=== PATIENT | male | born 1935 | race Caucasian/White ===

== ENCOUNTER 2019-03-25 12:05 | Inpatient (IN) ==
[2019-03-25] MEDS ORDERED: SODIUM CHLORIDE 0.9% 1000ML 1,000 ML IV SCH (12:30)
[2019-03-25 12:55] LABS: Hematocrit (blood only) 19.9 % (42-52); Hemoglobin 6.8 g/dL (14.0-18.0); Mean Corpuscular Hgb Conc 34.2 g/dL (32-36); Mean Corpuscular Volume 90.9 fL (80-100); Mean Platelet Volume 8.7 fL (7.4-10.4); Platelet Count 247 K/uL (130-400); RDW Coefficient of Variation 15.6 % (11.5-14.5); RDW Standard Deviation 51.3 fL (36.4-46.3); Red Blood Count 2.19 M/uL (4.7-6.1); White Blood Count 15.42 K/uL (4.8-10.8)
[2019-03-25 13:01] LABS: Alanine Aminotransferase 17 U/L (12-78); Albumin Level 2.4 gm/dl (3.4-5.0); Aspartate Aminotransferase 18 U/L (15-37); BUN Creatinine Ratio 23.3 (10-20); Blood Urea Nitrogen 41 mg/dl (7-18); Calcium 8.6 mg/dl (8.5-10.1); Carbon Dioxide 25 mmol/L (21-32); Chloride 104 mmol/L (98-107); Est GFR (Non-African American) 34.5; Glucose 142 mg/dl (70-99); Magnesium 2.1 mg/dl (1.8-2.4); Potassium 4.9 mmol/L (3.5-5.1); Sodium 137 mmol/L (136-145)
[2019-03-25 13:05] LABS: Basophils # (auto) 0.03 K/uL (0-0.2); Basophils % (auto) 0.2 %; Eosinophils # (auto) 0.08 K/uL (0-0.5); Eosinophils % (auto) 0.5 %; Immature Granulocytes # (auto) 0.09 K/uL (0.00-0.02); Immature Granulocytes % (auto) 0.6 %; Lymphocytes # (auto) 1.92 K/uL (1.2-3.4); Lymphocytes % (auto) 12.5 %; Monocytes # (auto) 1.02 K/uL (0.11-0.59); Monocytes % (auto) 6.6 %; Neutrophils # (auto) 12.28 K/uL (1.4-6.5); Neutrophils % (auto) 79.6 %; RBC Morphology Unremarkable
--- NOTE | 2019-03-25 13:05 | XRay Report ---
XR chest 1V portable CLINICAL HISTORY: weakness COMPARISON STUDY: 04/26/2013 FINDINGS: The cardiac and mediastinal contours are normal. There is no evidence of focal pulmonary co nsolidation. There is no evidence of failure. No pleural effusions are visualized.[There is a small c alcified granuloma at the right lung base. IMPRESSION: No active disease in the chest. Electronically signed by: Garrett Harris M.D. 03/25/2019 1:04 PM
[2019-03-25 13:09] LABS: Prothrombin Time > 90.0 Seconds (9.0-12.0)
[2019-03-25 13:12] LABS: Albumin Globulin Ratio 0.7 (0.9-2); Alkaline Phosphatase 50 U/L (45-117); Bilirubin,Total 0.3 mg/dl (0.2-1); Globulin 3.3 gm/dl (2.5-4.0); Total Protein 5.7 gm/dl (6.4-8.2); Troponin I < 0.015 ng/ml (0-0.045)
[2019-03-25] MEDS ORDERED: SODIUM CHLORIDE 0.9% 250 ML IV PRN ×2 (13:33→16:21)
[2019-03-25] MEDS ORDERED: PANTOprazole 80 MG in DEXTROSE 5% 100 ML IV STA (13:38)
[2019-03-25] MEDS ORDERED: ACETAMINOPHEN 65 ML IV ONE (14:32)
--- NOTE | 2019-03-25 14:41 | History & Physical Report ---
Date of Service March 25, 2019 Assessment & Plan (1) Symptomatic anemia: This is an 84yo M with a PMH of atrial fibrillation on coumadin, CKD III, HTN and other medical problems listed below who presents with generalized weakness and dark stool x 5 days and was found to have a GI bleed in the setting of supratherapeutic INR. Hemoglobin of 6.8, hematocrit of 19.9, INR elevated at 10.4 Given oral vitamin K 5mg x 1 Consented, type & crossed for 2u prbcs. Receiving 1st of 2 in ED Repeat H&H at 1800 Monitor CBC, fall precautions (2) GI bleed: Heme + stool, having dark colored bowel movements, last one in ED Has been receiving fluconazole for oral thrush, which likely contributed to supratherapeutic INR - hold fluconazone and coumadin Will obtain stool culture, c diff in setting of leukocytosis. 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 No colonoscopy on record Keep NPO for now (3) Atrial fibrillation: A fib rate controlled on EKG at 94 bpm Monitor rate and rhythm on telemetry Hold coumadin. Given 5mg oral Vit K x 1 due to supratherapeutic INR of 10.4 Monitor INR (4) Hypertension: Normotensive. Continue home amlodipine with hold parameters (5) Insomnia: Klonopin HS DVT Ppx: SCDs in setting of GI bleed Code status: DNR per discussion with patient PCP: Earl Dispo: Admit to telemetry. Discharge planning, PT and OT ordered. Patient seen in collaboration with Dr. Mendoza. Please see addendum. History of Present Illness Chief Complaint: Dark stools, symptomatic anemia Primary Care Provider: Camacho Chan DO This is an 84yo M with a PMH of atrial fibrillation on coumadin, CKD III, HTN and other medical problems listed below who presents with generalized weakness and dark stool x 5 days. Patient started to feel generally weak about 5 days ago and then began having multiple episodes of dark stool daily. Yesterday patient states he had 13 small episodes of dark stool. Denies any bright red blood per rectum. At baseline, patient has multiple episodes of loose stool daily. Starting this morning, patient developed dyspnea on exertion decided to come in the ED for further evaluation. He started taking fluconazole for oral thrush mid-February and his coumadin dose was decreased to 2.5mg daily per coumadin clinic. Endorses intermittent chills but no fever. No lightheadedness, visual changes, chest pain or palpitations. No nausea, vomiting or abdominal pain. Has noted weight loss of 15 pounds over the past few months, but states he has had decreased appetite due to oral thrush. In ED, patient found to be hemodynamically stable with mild tachycardia. Leukocytosis of 15 point 4K. Hemoglobin of 6.8 with hematocrit of 19.9. Platelets are stable at 247. Creatinine elevated at 1.75 (baseline mid-). INR supratherapeutic at 10.4. Consented, type and crossed and being transfused first of 2 units PRBCs in the ED. Will give 5mg oral vitamin K x 1. Also initiated on Protonix bolus and drip. 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 No colonoscopy on record. Allergies Allergy/AdvReac Type Severity Reaction Status Date / Time pravastatin Allergy Unknown Verified 03/25/19 12:31 cholestyramine AdvReac Intermediate muscle Verified 12/28/18 11:24 soreness simvastatin AdvReac Intermediate sore Verified 12/28/18 11:24 muscles pollen extracts AdvReac Unknown sinus Verified 12/28/18 11:24 drainage Home Medications Home Medications Medication Instructions Recorded Confirmed Type acetaminophen [Tylenol Extra 500 mg PO UD PRN 12/26/18 03/25/19 History Strength] amlodipine 10 mg PO QAM 12/26/18 03/25/19 History clonazepam 1 mg PO HS 12/26/18 03/25/19 History warfarin [Jantoven] 2.5 mg PO QAM 12/28/18 03/25/19 History clotrimazole 10 mg PO 5XD 03/25/19 03/25/19 History Past Med/Surg History Medical History Hypertension (Chronic) Atrial fibrillation (Chronic) DX 1 YEAR AGO - ON COUMADIN - FOLLOWS /W DR. 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 Hearing deficit (Chronic) Surgical History History of cataract surgery (Chronic) History of total knee replacement (Chronic) BL Family History Other Stroke Social History Preferred Language: Colombian Communication Ability: Effective Outside Collector Required: No Beliefs That Will Affect Care: None marital status: Current Living Situation: Spouse current occupational status: retired Other Information That Helps Us Care for You: No Feels Safe at Home: Yes Safety Concerns: Feels Safe At This Time Smoking Status: Former smoker Do You Dip or Chew Tobacco: No Second Hand Exposure: No Tobacco Cessation Education Requested by Patient: No Hx Alcohol Use: No Hx Substance Use: No Review of Systems Review of Systems: At least ten systems reviewed and negative except as noted in the HPI. Physical Exam Physical Exam: General Appearance: WD/WN, elderly male in no apparent distress, pale Head: normocephalic, atraumatic Eyes: normal inspection, PERRL, EOMI ENT: hearing grossly normal, pharynx normal (dry mucous membranes) Neck: supple, no JVD, no adenopathy Respiratory/Chest: lungs clear to auscultation. No wheezes, rales or rhonci. No respiratory distress or accessory muscle use Cardiovascular: irregular rate & rhythm, no murmur appreciated, normal peripheral pulses, trace BLE edema Abdomen/GI: normal bowel sounds, soft, non-tender to palpation Extremities/Musculoskelatal: normal inspection, no calf tenderness, normal capillary refill, no pedal edema Neurologic/Psych: alert, normal mood/affect, oriented x 3 Skin: warm/dry, pale Results & Data Vital Signs (Past 12 Hours) Vital Signs Temp Pulse Resp BP Pulse Ox 03/25/19 14:16 36.5 C 107 H 18 109/66 92 03/25/19 13:01 90 20 110/58 L 100 03/25/19 13:00 92 H 25 H 91 03/25/19 12:45 96 03/25/19 12:43 80 18 90 03/25/19 12:34 107 H 23 109/64 96 03/25/19 12:14 36.3 C L 60 20 100/56 L 98 Laboratory Results Short CBC 03/25/19 Range/Units 12:35 WBC 15.42 H (4.8-10.8) K/uL Hgb 6.8 L* (14.0-18.0) g/dL Hct 19.9 L* (42-52) % Plt Count 247 (130-400) K/uL BMP 03/25/19 12:35 Sodium 137 Potassium 4.9 Chloride 104 Carbon Dioxide 25 BUN 41 H Creatinine 1.75 H Glucose 142 H Calcium 8.6 Cardiac Enzymes 03/25/19 Range/Units 12:35 Troponin I < 0.015 (0-0.045) ng/ml Liver Function 03/25/19 Range/Units 12:35 Total Bilirubin 0.3 (0.2-1) mg/dl AST 18 (15-37) U/L ALT 17 (12-78) U/L Alkaline Phosphatase 50 (45-117) U/L Albumin 2.4 L (3.4-5.0) gm/dl Diagnostic Findings CXR: IMPRESSION: No active disease in the chest. ECG Rhythm: atrial fibrillation Additional Comments: non-specific T wave abnormality Code Status & VTE Plan Code Status DNR Supervising Physician Co-Signing Physician Notes I have seen and examined the patient with physician assistant finance manager and agree with the assessment as above and would like to comment that patient with anemia and there is concern that this is anemia secondary to acute blood loss and coagulopathy as patient with supratherapeutic INR above 10. Patient's elevated INR may have been due to coumadin use with fluconazaole . Patient has received vitamin K 5 mg IV in the ED. He has received half of the first unit of PRBC before there was problems with tubing and therefor the remaining blood in the bag was deemed unusable. The second unit of PRBC is running at this time On exam no acute distress, awake, alert and cooperative hemodynamically stable lungs are clear to asucultation bilaterally heart rate is regular and in sinus abdomen is soft and nontender and positive bowel sounds extremities: no edema the immediate plan at this time is to repeat the CBC after 1.5 units of PRBC have been transfused and to repeat INR to check INR reversal. patient to be monitored on telemetry. code status is DNR/DNI. will seek Gastrointestinal consult once INR is reversed for consideration of endoscopy continue other medical management for health conditions as described by physician assistant finance manager Daughter [phone] (1) GI bleed GI bleed type/associated pathology: unspecified gastrointestinal hemorrhage type Qualified Code(s): K92.2 - Gastrointestinal hemorrhage, unspecified
[2019-03-25] MEDS: PANTOprazole 40 MG in DEXTROSE 5% 100 ML IV SCH ×2 (14:49→19:42)
[2019-03-25 14:52] LABS: INR 10.4 (0.9-1.1)
[2019-03-25] MEDS ORDERED: PHYTONADIONE 5 MG in SODIUM CHLORIDE 0.9% 50 ML IV ONE (15:17)
[2019-03-25] MEDS ORDERED: ACETAMINOPHEN 325 MG TAB PO PRN (16:21)
[2019-03-25] MEDS ORDERED: ONDANSETRON INJ 2 MG/ML 2 ML VIAL IV PRN (16:21)
--- NOTE | 2019-03-25 16:42 | Emergency Department Note ---
Entered by Todd Gallegos acting as a scribe for Jay Fountain MD History of Present Illness General Chief complaint: Weakness Stated complaint: weak, feeling faint Time Seen by Provider: 03/25/19 12:18 Source: patient History of Present Illness Onset (ago): day(s) (past few) Location: head (global) Pain Consistency: + constant Quality: + other (weakness) Associated symptoms: + shortness of breath and + other (dark stools) The patient is an 84 year old white male with PMHx A-fib, HTN, and bladder cancer who presents to the Emergency Room with complaints of constant weakness for the past few days. The patient reports that he has been lying in bed frequently and feels dizzy and weaker when he stands up. He reports some shortness of breath over the past few days but denies any chest pain. He states that he has been having dark stools over the past few days. He denies any current leg swelling. The patient also reports about a 15-pound weight loss over the past few months. He states that he does not use alcohol or tobacco. His bung driver is Dr. Sarabjit Caceres. He notes that he is taking his medications as prescribed. The patient was recently on Diflucan for thrush. Home Medications Home Medications Medication Instructions Recorded Confirmed Type acetaminophen [Tylenol Extra 500 mg PO UD PRN 12/26/18 03/25/19 History Strength] amlodipine 10 mg PO QAM 12/26/18 03/25/19 History clonazepam 1 mg PO HS 12/26/18 03/25/19 History warfarin [Jantoven] 2.5 mg PO QAM 12/28/18 03/25/19 History clotrimazole 10 mg PO 5XD 03/25/19 03/25/19 History Allergies Allergy/AdvReac Type Severity Reaction Status Date / Time pravastatin Allergy Unknown Verified 03/25/19 12:31 cholestyramine AdvReac Intermediate muscle Verified 12/28/18 11:24 soreness simvastatin AdvReac Intermediate sore Verified 12/28/18 11:24 muscles pollen extracts AdvReac Unknown sinus Verified 12/28/18 11:24 drainage Past Med/Surg History Medical History Hypertension (Chronic) Atrial fibrillation (Chronic) DX 1 YEAR AGO - ON COUMADIN - FOLLOWS /W DR. 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 Hearing deficit (Chronic) Surgical History History of cataract surgery (Chronic) History of total knee replacement (Chronic) BL Family History Other Stroke Social History Preferred Language: Kiswahili Communication Ability: Effective Qa Auditor Required: No Beliefs That Will Affect Care: None marital status: Current Living Situation: Spouse current occupational status: retired Other Information That Helps Us Care for You: No Feels Safe at Home: Yes Safety Concerns: Feels Safe At This Time Smoking Status: Former smoker Do You Dip or Chew Tobacco: No Second Hand Exposure: No Tobacco Cessation Education Requested by Patient: No Hx Alcohol Use: No Hx Substance Use: No Review of Systems See HPI for pertinent positives & negatives. and A total of 10 systems reviewed and were otherwise negative Physical Exam Vital Signs Vital Signs - 24 hr 03/25/19 12:14 03/25/19 12:34 03/25/19 12:43 Temperature 36.3 C L Temperature Source Oral Sepsis Recent Fever Within 48 Hours No Sepsis New/Unexplained Change in Mental Status No Sepsis Action Taken by Nursing No Action Required Pulse Rate 60 107 H 80 Pulse Rate from SpO2 Sensor 98 H 99 H Pulse Rhythm Regular Pulse Strength Normal Respiratory Rate 20 23 18 Respiratory Effort / Characteristics Non-Labored Spontaneous Respiratory Depth Normal Respiratory Pattern Regular Blood Pressure 100/56 L 109/64 Blood Pressure Mean 70 79 Blood Pressure Position Sitting Pulse Oximetry 98 96 90 Oxygen Delivery Method Room Air Room Air Room Air Oxygen Flow Rate 03/25/19 12:45 03/25/19 13:00 03/25/19 13:01 Temperature Temperature Source Sepsis Recent Fever Within 48 Hours Sepsis New/Unexplained Change in Mental Status Sepsis Action Taken by Nursing Pulse Rate 92 H 92 H 90 Pulse Rate from SpO2 Sensor 91 H 86 Pulse Rhythm Pulse Strength Respiratory Rate 13 25 H 20 Respiratory Effort / Characteristics Respiratory Depth Respiratory Pattern Blood Pressure 110/58 L Blood Pressure Mean 75 Blood Pressure Position Pulse Oximetry 97 91 100 Oxygen Delivery Method Room Air Room Air Room Air Oxygen Flow Rate 0 03/25/19 13:02 03/25/19 13:10 03/25/19 13:15 Temperature Temperature Source Sepsis Recent Fever Within 48 Hours Sepsis New/Unexplained Change in Mental Status Sepsis Action Taken by Nursing Pulse Rate 88 92 H 91 H Pulse Rate from SpO2 Sensor 86 95 H Pulse Rhythm Pulse Strength Respiratory Rate 18 19 19 Respiratory Effort / Characteristics Respiratory Depth Respiratory Pattern Blood Pressure Blood Pressure Mean Blood Pressure Position Pulse Oximetry 98 98 98 Oxygen Delivery Method Oxygen Flow Rate 03/25/19 13:20 03/25/19 13:30 03/25/19 13:31 Temperature Temperature Source Sepsis Recent Fever Within 48 Hours Sepsis New/Unexplained Change in Mental Status Sepsis Action Taken by Nursing Pulse Rate 84 96 H 102 H Pulse Rate from SpO2 Sensor 90 Pulse Rhythm Pulse Strength Respiratory Rate 20 17 22 Respiratory Effort / Characteristics Respiratory Depth Respiratory Pattern Blood Pressure 112/65 Blood Pressure Mean 80 Blood Pressure Position Pulse Oximetry 98 100 95 Oxygen Delivery Method Oxygen Flow Rate 03/25/19 13:40 03/25/19 14:00 03/25/19 14:01 Temperature Temperature Source Sepsis Recent Fever Within 48 Hours Sepsis New/Unexplained Change in Mental Status Sepsis Action Taken by Nursing Pulse Rate 91 H 101 H 90 Pulse Rate from SpO2 Sensor 93 H Pulse Rhythm Pulse Strength Respiratory Rate 23 21 17 Respiratory Effort / Characteristics Respiratory Depth Respiratory Pattern Blood Pressure 109/66 Blood Pressure Mean 80 Blood Pressure Position Pulse Oximetry 98 89 L 87 L Oxygen Delivery Method Oxygen Flow Rate 03/25/19 14:10 03/25/19 14:15 03/25/19 14:16 Temperature 36.5 C Temperature Source Oral Sepsis Recent Fever Within 48 Hours Sepsis New/Unexplained Change in Mental Status Sepsis Action Taken by Nursing Pulse Rate 99 H 94 H 107 H Pulse Rate from SpO2 Sensor Pulse Rhythm Pulse Strength Respiratory Rate 20 17 18 Respiratory Effort / Characteristics Respiratory Depth Respiratory Pattern Blood Pressure 109/66 Blood Pressure Mean 80 Blood Pressure Position Lying Pulse Oximetry 93 92 Oxygen Delivery Method Oxygen Flow Rate 03/25/19 14:20 03/25/19 14:30 Temperature Temperature Source Sepsis Recent Fever Within 48 Hours Sepsis New/Unexplained Change in Mental Status Sepsis Action Taken by Nursing Pulse Rate 97 H 90 Pulse Rate from SpO2 Sensor 94 H Pulse Rhythm Pulse Strength Respiratory Rate 14 15 Respiratory Effort / Characteristics Respiratory Depth Respiratory Pattern Blood Pressure Blood Pressure Mean Blood Pressure Position Pulse Oximetry 92 99 Oxygen Delivery Method Oxygen Flow Rate GENERAL: Well appearing, well nourished, NAD, non-toxic. EYE EXAM: Normal conjunctiva. PERRL, no anisocoria and EOM's grossly intact w/o pain. OROPHARYNX: Moist mucous membranes. Grossly normal dentition. NECK: Supple, no nuchal rigidity, no adenopathy, non-tender. No signs of meningismus. LUNGS: Clear to auscultation. Normal chest wall mechanics. HEART: Tachycardic and irregular. No MRG. ABDOMEN: Abdomen soft, non-tender, normo-active bowel sounds, no masses, no rebound or guarding. RECTAL: Dark stool, heme positive. No fissures. No bright red blood. BACK: No CVA TTP. SKIN: No rashes and no bruising. UPPER EXTREMITIES: Upper extremities are grossly normal. LOWER EXTREMITIES: No pitting edema. No calf pain. NEURO EXAM: A&O x3, cranial nerves II-XII grossly intact, normal speech, moves all 4 extremities on command w/o issue. Course 1233: The patient was evaluated in room C2B. A complete history and physical examination were performed. 1336: I consulted Anabella Thakkar PA-C: [facility] Hospitalist. The patient will be reevaluated for hospitalization under Dr. Mendoza. Administered Medications Pantoprazole Sodium 40 mg/ (Dextrose) 100 mls @ 20 mls/hr IV Q5H RAZ Stop: 04/24/19 13:44 Last Admin: 03/25/19 14:49 Dose: 20 mls/hr Documented by: [id number] Discontinued Medications Sodium Chloride (Nss 1000ml) 1,000 mls @ 999 mls/hr IV .Q1H1M RAZ Stop: 03/25/19 13:30 Last Infusion: 03/25/19 13:56 Dose: 0 mls/hr Documented by: [id number] Admin: 03/25/19 12:45 Dose: 999 mls/hr Documented by: [id number] Pantoprazole Sodium 80 mg/ (Dextrose) 120 mls @ 480 mls/hr IV NOW STA Stop: 03/25/19 13:52 Last Infusion: 03/25/19 15:10 Dose: 0 mls/hr Documented by: [id number] Admin: 03/25/19 14:48 Dose: 480 mls/hr Documented by: [id number] Acetaminophen (Ofirmev) 65 mls @ 200 mls/hr IV NOW ONE Stop: 03/25/19 14:51 Last Infusion: 03/25/19 15:45 Dose: 0 mls/hr Documented by: [id number] Admin: 03/25/19 15:04 Dose: 200 mls/hr Documented by: [id number] Phytonadione 5 mg/ Sodium (Chloride) 50.5 mls @ 101 mls/hr IV ONE ONE Stop: 03/25/19 15:46 Last Infusion: 03/25/19 16:25 Dose: 0 mls/hr Documented by: [id number] Admin: 03/25/19 15:40 Dose: 101 mls/hr Documented by: [id number] 2 units pRBCs Medical Decision Making Medical Records Attestation: I reviewed the patient's medical records. Home Medications Current Medication List: was personally reviewed by me Laboratory Data Attestation: I reviewed the patient's lab results. Result diagrams: 03/25/19 12:35 03/25/19 12:35 Lab Results 03/25/19 03/25/19 03/25/19 Range/Units 12:35 12:35 12:35 WBC 15.42 H (4.8-10.8) K/uL RBC 2.19 L (4.7-6.1) M/uL Hgb 6.8 L* (14.0-18.0) g/dL Hct 19.9 L* (42-52) % MCV 90.9 (80-100) fL MCH 31.1 (25-34) pg MCHC 34.2 (32-36) g/dL RDW Std Deviation 51.3 H (36.4-46.3) fL RDW Coeff of Marva 15.6 H (11.5-14.5) % Plt Count 247 (130-400) K/uL MPV 8.7 (7.4-10.4) fL Immature Gran % (Auto) 0.6 % Neut % (Auto) 79.6 % Lymph % (Auto) 12.5 % [place] % (Auto) 6.6 % Eos % (Auto) 0.5 % Baso % (Auto) 0.2 % Immature Gran # (Auto) 0.09 H (0.00-0.02) K/uL Neut # (Auto) 12.28 H (1.4-6.5) K/uL Lymph # (Auto) 1.92 (1.2-3.4) K/uL [place] # (Auto) 1.02 H (0.11-0.59) K/uL Eos # (Auto) 0.08 (0-0.5) K/uL Baso # (Auto) 0.03 (0-0.2) K/uL RBC Morphology Unremarkable PT > 90.0 H (9.0-12.0) Seconds INR 10.4 H* (0.9-1.1) Sodium 137 (136-145) mmol/L Potassium 4.9 (3.5-5.1) mmol/L Chloride 104 (98-107) mmol/L Carbon Dioxide 25 (21-32) mmol/L Anion Gap 7.0 (3-11) BUN 41 H (7-18) mg/dl Creatinine 1.75 H (0.6-1.4) mg/dl Est Cr Clr Drug Dosing Not Reportable Est GFR ( Amer) 40.0 Est GFR (Non-Af Amer) 34.5 BUN/Creatinine Ratio 23.3 H (10-20) Glucose 142 H (70-99) mg/dl Calcium 8.6 (8.5-10.1) mg/dl Magnesium 2.1 (1.8-2.4) mg/dl Total Bilirubin 0.3 (0.2-1) mg/dl AST 18 (15-37) U/L ALT 17 (12-78) U/L Alkaline Phosphatase 50 (45-117) U/L Troponin I < 0.015 (0-0.045) ng/ml Total Protein 5.7 L (6.4-8.2) gm/dl Albumin 2.4 L (3.4-5.0) gm/dl Globulin 3.3 (2.5-4.0) gm/dl Albumin/Globulin Ratio 0.7 L (0.9-2) TSH 1.650 (0.300-4.500) uIu/ml Blood Type Antibody Screen Crossmatch 03/25/19 Range/Units 12:50 WBC (4.8-10.8) K/uL RBC (4.7-6.1) M/uL Hgb (14.0-18.0) g/dL Hct (42-52) % MCV (80-100) fL MCH (25-34) pg MCHC (32-36) g/dL RDW Std Deviation (36.4-46.3) fL RDW Coeff of Marva (11.5-14.5) % Plt Count (130-400) K/uL MPV (7.4-10.4) fL Immature Gran % (Auto) % Neut % (Auto) % Lymph % (Auto) % [place] % (Auto) % Eos % (Auto) % Baso % (Auto) % Immature Gran # (Auto) (0.00-0.02) K/uL Neut # (Auto) (1.4-6.5) K/uL Lymph # (Auto) (1.2-3.4) K/uL [place] # (Auto) (0.11-0.59) K/uL Eos # (Auto) (0-0.5) K/uL Baso # (Auto) (0-0.2) K/uL RBC Morphology PT (9.0-12.0) Seconds INR (0.9-1.1) Sodium (136-145) mmol/L Potassium (3.5-5.1) mmol/L Chloride (98-107) mmol/L Carbon Dioxide (21-32) mmol/L Anion Gap (3-11) BUN (7-18) mg/dl Creatinine (0.6-1.4) mg/dl Est Cr Clr Drug Dosing Est GFR ( Amer) Est GFR (Non-Af Amer) BUN/Creatinine Ratio (10-20) Glucose (70-99) mg/dl Calcium (8.5-10.1) mg/dl Magnesium (1.8-2.4) mg/dl Total Bilirubin (0.2-1) mg/dl AST (15-37) U/L ALT (12-78) U/L Alkaline Phosphatase (45-117) U/L Troponin I (0-0.045) ng/ml Total Protein (6.4-8.2) gm/dl Albumin (3.4-5.0) gm/dl Globulin (2.5-4.0) gm/dl Albumin/Globulin Ratio (0.9-2) TSH (0.300-4.500) uIu/ml Blood Type A Positive Antibody Screen NEGATIVE Crossmatch See Detail Imaging Data Radiologist's Impression: Radiology results as stated below per my review and the radiologist's interpretation: XR chest 1V portable CLINICAL HISTORY: weakness COMPARISON STUDY: 04/26/2013 FINDINGS: The cardiac and mediastinal contours are normal. There is no evidence of focal pulmonary consolidation. There is no evidence of failure. No pleural effusions are visualized.[There is a small calcified granuloma at the right lung base. IMPRESSION: No active disease in the chest. Electronically signed by: Garrett Harris M.D. 03/25/2019 1:04 PM ECG Data Attestation: I personally reviewed and interpreted this ECG as follows: Indication: weakness Rate (beats per minute): 94 Rhythm: atrial fibrillation Findings: + other (normal axis) and + T-wave inversion (lead III) Blood Pressure Blood Pressure Findings: Normal blood pressure Blood Pressure Disposition: did not require urgent referral MDM Narrative Ancillary records reviewed/Prior records reviewed. Triage nursing summary reviewed. The patient is an 84 year old white male with PMHx A-fib, HTN, and bladder cancer who presents to the Emergency Room with complaints of constant weakness for the past few days. Differential diagnosis includes: metabolic, infection, hypo/hyperglycemia, electrolyte abnormalities, cardiac sources, intracerebral event, toxicologic, neurologic, as well as others were entertained. Patient was seen and evaluated the bedside. The patient was complaining of some decreased appetite weight loss as well as some mild shortness of breath and dyspnea on exertion. Patient did relate that he was recently treated for some oral thrush started on Diflucan was told that his stools may be darker. Patient is on Coumadin for known history of A. fib. Patient does have a history of hypertension. The patient is not on anything for rate control with regard to A. fib. Patient was started on IV fluids patient did a blood work completed. Rectal exam showed some darker stool not necessarily melenic and no bright red blood but was heme positive. Patient's blood work did show a hemoglobin of 6.8. Patient was consented for 2 units PRBCs. INR pending. The patient was given IV fluids also. I did speak the on-call hospitalist agreed to further evaluate treat the patient. The patient was also started on a PPI bolus and drip. Upon later review the patient's INR was 10. This was likely secondary to the fluconazole. I did review the admitting hospitalist chart which did state that the patient was given 5 mg of vitamin K. Impression & Plan GI bleed, Shortness of breath, Symptomatic anemia Critical Care Time Critical Care Time: Yes Total Critical Care Time: 55 I have personally spent 55 minutes of critical care time in the direct management of this patient. This includes bedside care, interpretation of diagnostic studies, and testing, discussion with consultants, patient, and family members, and other required patient management activities. This 55 minutes is in excess of all separately billable procedures. Discharge Plan Visit Data Chief Complaint: Weakness Stated Complaint: weak, feeling faint ED Provider: Jay Fountain Discharge Problem: GI bleed, Shortness of breath, Symptomatic anemia Patient Disposition: Being Evaluated by Hospitalist Discharge Instructions Interventions: ED Discharge Assessment Last Done: 03/25/19 15:15 Discharge Problem: GI bleed Qualifiers: GI bleed type/associated pathology: unspecified gastrointestinal hemorrhage type Qualified Code(s): K92.2 - Gastrointestinal hemorrhage, unspecified The scribe's documentation has been prepared under my direction and personally reviewed by me in its entirety. I confirm that the note above accurately reflects all work, treatment, procedures, and medical decision making performed by me.
[2019-03-25 20:28] LABS: Basophils # (auto) 0.02 K/uL (0-0.2); Basophils % (auto) 0.2 %; Eosinophils # (auto) 0.08 K/uL (0-0.5); Eosinophils % (auto) 0.7 %; Hematocrit (blood only) 22.8 % (42-52); Hemoglobin 7.7 g/dL (14.0-18.0); Immature Granulocytes # (auto) 0.05 K/uL (0.00-0.02); Immature Granulocytes % (auto) 0.4 %; Lymphocytes # (auto) 1.59 K/uL (1.2-3.4); Lymphocytes % (auto) 13.5 %; Mean Corpuscular Hgb Conc 33.8 g/dL (32-36); Mean Corpuscular Volume 89.1 fL (80-100); Mean Platelet Volume 8.9 fL (7.4-10.4); Monocytes # (auto) 0.85 K/uL (0.11-0.59); Monocytes % (auto) 7.2 %; Neutrophils # (auto) 9.19 K/uL (1.4-6.5); Platelet Count 198 K/uL (130-400); RDW Coefficient of Variation 14.9 % (11.5-14.5); RDW Standard Deviation 48.6 fL (36.4-46.3); Red Blood Count 2.56 M/uL (4.7-6.1); White Blood Count 11.78 K/uL (4.8-10.8)
[2019-03-25 20:38] LABS: INR 2.7 (0.9-1.1); Prothrombin Time 26.1 Seconds (9.0-12.0)
[2019-03-25 20:45] LABS: Acanthocytes 1+; Ovalocytes 1+
[2019-03-25] MEDS: clonazePAM 1 MG TAB PO SCH (21:15)
[2019-03-26] MEDS: PANTOprazole 40 MG in DEXTROSE 5% 100 ML IV SCH ×3 (00:06→09:53)
[2019-03-26 05:09] LABS: INR 1.5 (0.9-1.1); Prothrombin Time 15.2 Seconds (9.0-12.0)
[2019-03-26 05:16] LABS: BUN Creatinine Ratio 24.1 (10-20); Calcium 7.7 mg/dl (8.5-10.1); Creatinine Clr Calc Pharmacy 33.6 ml/min; Est GFR (African American) 47.4; Est GFR (Non-African American) 40.9; Potassium 4.4 mmol/L (3.5-5.1)
[2019-03-26 05:39] LABS: Hematocrit (blood only) 19.9 % (42-52); Hemoglobin 7.1 g/dL (14.0-18.0); Mean Corpuscular Hgb Conc 35.7 g/dL (32-36); Mean Corpuscular Volume 88.4 fL (80-100); Mean Platelet Volume 8.5 fL (7.4-10.4); Platelet Count 173 K/uL (130-400); RDW Coefficient of Variation 15.3 % (11.5-14.5); RDW Standard Deviation 49.2 fL (36.4-46.3); Red Blood Count 2.25 M/uL (4.7-6.1); White Blood Count 9.31 K/uL (4.8-10.8)
[2019-03-26] MEDS ORDERED: SODIUM CHLORIDE 0.9% 250 ML IV PRN (05:56)
[2019-03-26] MEDS ORDERED: D5W AND 1/2NSS 1,000 ML IV SCH (07:00)
[2019-03-26] MEDS ORDERED: AMLODIPINE BESYLATE 5 MG TAB PO SCH (09:00)
--- NOTE | 2019-03-26 09:40 | Gastrointestinal Consultation ---
Date of Consultation March 26, 2019 Assessment & Plan (1) Symptomatic anemia: (2) Atrial fibrillation: (3) GI bleed: Pt is a 84 male w melena, symptomatic anemia in setting of Coumadin use for Afib and supratherapeutic INR perhaps due to recent concurrent use of Diflucan for thrush. Overnight been transfused 2U PRBC, H/H responding though he's still passing dark stools. - Keep NPO - EGD eval by Dr. Eid today - PPI gtt - Monitor H/H closely - GI will give further recs after EGD is completed. Supervising Physician Co-Signing Physician Notes I saw and evaluated the patient. He presents with a history of anemia and a question of melena. Of note his INR was greater than 10 upon admission. It appears that the patient was started on Diflucan recently and perhaps this caused the patient to become more hypercoagulable than normal due to problems with tablets and of warfarin. Physical examination No obvious distress No abdominal discomfort Impression: Patient with a significant anemia and hypercoagulable state likely related to use of Diflucan. We are planning to do upper endoscopy today to evaluate for a specific upper GI source of melena. If negative we would typically offer a colonoscopy, however, the patient is presently not interested in this type of intervention. Recommendations Upper endoscopy today History of Present Illness Reason for Consultation: GI bleed Requesting Physician: Dr. Abhilash Mendoza Attending Physician: Dr. Florencio Eid History of Present Illness Pt is a 84 y/o male w PMHx of bladder ca, HTN, Afib on Coumadin, CKD III who presented to ED yesterday w increasing weakness, fatigue, and dark stools x 5 days. He at baseline has 7 loose stools daily but never had any dark or black colored stools till recently. He denies any associated dizziness, lightheadedness, CP, SOB, abd pain, n/v. He had been losing weight due to change in taste in mouth. Found to have oral thrush and was started recently on Diflucan. Upon eval in ED he was found to be severely anemic, Hgb 6.5 (baseline 11), transfused 2U PRBC and Hgb up to 7.7 now. His INR was >10, reversed w Vit K down to 1.5 now. Plts normal 173. 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 Hx of EGD/EUS [place] [address] Pinto - IPMN pancreas benign cytology, duodenitis. Never had colonoscopy before. Denies NSAIDs, tobacco, ETOH Allergies Allergy/AdvReac Type Severity Reaction Status Date / Time pravastatin Allergy Unknown Verified 03/25/19 12:31 cholestyramine AdvReac Intermediate muscle Verified 12/28/18 11:24 soreness simvastatin AdvReac Intermediate sore Verified 12/28/18 11:24 muscles pollen extracts AdvReac Unknown sinus Verified 12/28/18 11:24 drainage Home Medications Home Medications Medication Instructions Recorded Confirmed Type acetaminophen [Tylenol Extra 500 mg PO UD PRN 12/26/18 03/25/19 History Strength] amlodipine 10 mg PO QAM 12/26/18 03/25/19 History clonazepam 1 mg PO HS 12/26/18 03/25/19 History warfarin [Jantoven] 2.5 mg PO QAM 12/28/18 03/25/19 History clotrimazole 10 mg PO 5XD 03/25/19 03/25/19 History Patient History Medical History Hypertension (Chronic) Atrial fibrillation (Chronic) DX 1 YEAR AGO - ON COUMADIN - FOLLOWS /W DR. 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 Hearing deficit (Chronic) Surgical History History of cataract surgery (Chronic) History of total knee replacement (Chronic) BL Family History Other Stroke Social History Preferred Language: Greek Communication Ability: Effective Service Establishment Attendant Required: No Beliefs That Will Affect Care: None marital status: Current Living Situation: Spouse current occupational status: retired Other Information That Helps Us Care for You: No Feels Safe at Home: Yes Safety Concerns: Feels Safe At This Time Smoking Status: Former smoker Do You Dip or Chew Tobacco: No Second Hand Exposure: No Tobacco Cessation Education Requested by Patient: No Hx Alcohol Use: No Hx Substance Use: No Review of Systems Review of Systems: All systems reviewed & are unremarkable except as noted in HPI & below Physical Exam Constitutional: WD/WN, vitals as above well groomed, cooperative and comfortable Eyes: PERRL, conjunctivae normal, anicteric sclerae ENMT: external ear and nose normal, oropharynx normal Respiratory: normal respiratory effort, lungs clear to auscultation Cardiovascular: RRR, no murmur, no edema Gastrointestinal (Abdomen): normal bowel sounds, soft, nontender, no hepatosplenomegaly Skin: no rashes, warm and dry no jaundice Neurologic: Motor/Sensory: no asterixis Psychiatric: A+Ox3, euthymic affect Lymphatic: no lymphedema Results & Data Vital Signs (Past 12 Hours) Vital Signs Temp Pulse Pulse Resp BP BP Pulse Ox 03/26/19 09:23 36.5 C 96 H 18 115/57 L 96 03/26/19 08:23 36.4 C L 88 18 103/55 L 97 03/26/19 07:53 36.6 C 81 20 100/55 L 97 03/26/19 07:38 36.5 C 91 H 20 100/58 L 96 03/26/19 07:18 36.5 C 92 H 20 95/57 L 96 03/26/19 03:49 36.6 C 89 18 105/54 L 96 03/25/19 23:20 36.5 C 89 18 108/60 97 (1) GI bleed GI bleed type/associated pathology: unspecified gastrointestinal hemorrhage type Qualified Code(s): K92.2 - Gastrointestinal hemorrhage, unspecified
--- NOTE | 2019-03-26 10:53 | Anesthesiology Consultation ---
Date of Service March 26, 2019 Assessment & Plan (1) Encounter for pre-operative examination: Chart Review Chart Review: Acceptable Risk for Surgery and Patient NOT seen in Pre Admission Testing Consults Requested none History Surgery Operation Date: 03/26/19 08:25 Proposed Procedures p Esophagogastroduodenoscopy Dr Stanton Eid Height/Weight Height: 5 ft 8 in Weight: 69.9 kg Allergies Allergy/AdvReac Type Severity Reaction Status Date / Time pravastatin Allergy Unknown Verified 03/25/19 12:31 cholestyramine AdvReac Intermediate muscle Verified 12/28/18 11:24 soreness simvastatin AdvReac Intermediate sore Verified 12/28/18 11:24 muscles pollen extracts AdvReac Unknown sinus Verified 12/28/18 11:24 drainage Medications Home Medications Medication Instructions Recorded Confirmed Last Taken acetaminophen [Tylenol Extra 500 mg PO UD PRN 12/26/18 03/25/19 12/26/18 14:30 Strength] amlodipine 10 mg PO QAM 12/26/18 03/25/19 03/25/19 clonazepam 1 mg PO HS 12/26/18 03/25/19 03/24/19 warfarin [Jantoven] 2.5 mg PO QAM 12/28/18 03/25/19 03/25/19 clotrimazole 10 mg PO 5XD 03/25/19 03/25/19 Unknown Active Medications Generic Name Dose Route Start Last Admin Trade Name Freq PRN Reason Stop Dose Admin Amlodipine Besylate 10 mg 03/26/19 09:00 03/26/19 08:08 Norvasc PO 04/25/19 08:59 10 mg QAM RAZ Administration Clonazepam 1 mg 03/25/19 21:00 03/25/19 21:15 Klonopin PO 04/24/19 20:59 1 mg HS RAZ Administration Pantoprazole Sodium 40 mg/ 100 mls @ 20 mls/hr 03/25/19 13:45 03/26/19 09:53 Dextrose IV 04/24/19 13:44 20 mls/hr Q5H RAZ Administration Dextrose/Sodium Chloride 1,000 mls @ 60 mls/hr 03/26/19 07:00 03/26/19 09:53 D5w And 1/2nss IV 04/25/19 06:59 60 mls/hr .[id number] RAZ Administration Past Medical History Medical History Hypertension (Chronic) Atrial fibrillation (Chronic) DX 1 YEAR AGO - ON COUMADIN - FOLLOWS /W DR. 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 Hearing deficit (Chronic) Exercise / Class Metabolic Activity II 4-5 Yardwork/Stairs/Walk up hill Past Family History Family History Other Stroke Past Surgical History Surgical History History of cataract surgery (Chronic) History of total knee replacement (Chronic) BL Past Anesthesia History No Hx of Anesthesia Complications and No Family Hx of Anesthesia Complications History of PONV No Hx of PONV and No Hx of Motion Sickness Social History Smoking Status: Former smoker Do You Dip or Chew Tobacco: No Hx Alcohol Use: No Hx Substance Use: No substance use type: does not use Physical Exam Vital Signs Last Vital Signs Temp 36.6 C 03/26/19 11:11 Pulse 93 H 03/26/19 11:11 Resp 16 03/26/19 11:11 BP 126/61 03/26/19 11:11 Pulse Ox 95 03/26/19 11:11 Testing Laboratory Results 03/26/19 04:43 03/26/19 04:43 PT 15.2 Seconds (9.0-12.0) H 03/26/19 04:43 INR 1.5 (0.9-1.1) H 03/26/19 04:43 Blood Type A Positive 03/25/19 12:50 Antibody Screen NEGATIVE 03/25/19 12:50 Electrocardiogram Date: 03/26/19 Findings: + AFIB @ (89) Atrial fibrillation Nonspecific ST and T wave abnormality Abnormal ECG When compared with ECG of 25-MAR-2019 12:27, No significant change was found Chest X-Ray Date: 03/25/19 XR chest 1V portable CLINICAL HISTORY: weakness COMPARISON STUDY: 04/26/2013 FINDINGS: The cardiac and mediastinal contours are normal. There is no evidence of focal pulmonary consolidation. There is no evidence of failure. No pleural effusions are visualized.[There is a small calcified granuloma at the right lung base. IMPRESSION: No active disease in the chest.
[2019-03-26] MEDS ORDERED: PROPOFOL IV EMULSION 10 MG/ML 20 ML VIAL IV ONE (12:35)
[2019-03-26] MEDS ORDERED: LIDOCAINE HCL 2% 2 ML VIAL/AMP(20MG/ML) INFIL ONE (12:35)
[2019-03-26] MEDS ORDERED: PHENYLEPHRINE 100MCG/ML 5ML SYR ONE (12:35)
--- NOTE | 2019-03-26 12:36 | GI REPORT ---
Patient Name: Jose C Ramos Procedure Date: 03/26/2019 12:10 PM Date of : 1935 Admit Type: Inpatient Age: 84 Gender: Male Attending MD: Florencio Eid DO Procedure: Upper GI endoscopy Providers: Florencio Eid DO Referring MD: Camacho Chan Indications: Acute post hemorrhagic anemia Medicines: Monitored Anesthesia Care Complications: No immediate complications. Estimated blood loss: Minimal. Estimated Blood Loss: Estimated blood loss was minimal. Procedure: Pre-Anesthesia Assessment: - Prior to the procedure, a History and Physical was performed, and patient medications, allergies and sensitivities were reviewed. The patient's tolerance of previous anesthesia was reviewed. - The risks and benefits of the procedure and the sedation options and risks were discussed with the patient. All questions were answered and informed consent was obtained. - Patient identification and proposed procedure were verified prior to the procedure by the physician, the nurse and the shrink pit operator. The procedure was verified in the procedure room. - Pre-procedure physical examination revealed no contraindications to sedation. - ASA Grade Assessment: III - A patient with severe systemic disease. - After reviewing the risks and benefits, the patient was deemed in satisfactory condition to undergo the procedure. - The anesthesia plan was to use monitored anesthesia care (MAC). - Immediately prior to administration of medications, the patient was re-assessed for adequacy to receive sedatives. - The heart rate, respiratory rate, oxygen saturations, blood pressure, adequacy of pulmonary ventilation, and response to care were monitored throughout the procedure. - The physical status of the patient was re-assessed after the procedure. After obtaining informed consent, the endoscope was passed under direct vision. Throughout the procedure, the patient's blood pressure, pulse, and oxygen saturations were monitored continuously. The Endoscope was introduced through the mouth, and advanced to the fourth part of duodenum. The upper GI endoscopy was accomplished without difficulty. The patient tolerated the procedure well. Findings: The examined esophagus was normal. The Z-line was regular and was found 38 cm from the incisors. The entire examined stomach was normal. The examined duodenum was normal. Impression: - Normal esophagus. - Z-line regular, 38 cm from the incisors. - Normal stomach. - Normal examined duodenum. - No specimens collected. Recommendation: - [facility]. - Advance diet as tolerated today. -Would normally suggest a colonoscopy for further evaluation, patient presently not interested in this type of examination. Please let us know if the circumstances change. Florencio Eid D.O. Florencio Eid, DO 03/26/2019 12:35:45 PM This report has been signed electronically. Note Initiated On: 03/26/2019 12:10 PM Number of Addenda: 0 I attest to the content of the Intraoperative Record and orders documented therein, exceptions below {[id number]}
--- NOTE | 2019-03-26 12:37 | Communication Note ---
Date of Service: March 26, 2019 The patient underwent an upper endoscopy for evaluation of melena and a significant anemia. The esophagus stomach and duodenum were normal-appearing. Given the scenario we would typically suggest a colonoscopy for further evaluation. The patient is presently not interested in this type of intervention. Recommendation Advance diet as tolerated May discontinue use of a proton pump inhibitor Consider use of an iron supplement twice daily for 6 weeks to help the patient rebuild his blood count Please call with any additional questions or concerns, GI to sign off for the present time.
--- NOTE | 2019-03-26 13:33 | Anesthesiology Progress Note ---
Date of Service March 26, 2019 Anesthesia Post Procedure Vital Signs Vital Signs: Temp Pulse Pulse Resp BP BP Pulse Ox 03/26/19 13:07 86 16 107/65 98 03/26/19 12:52 92 H 16 107/62 97 03/26/19 12:40 90 16 103/63 98 03/26/19 11:11 36.6 C 93 H 16 126/61 95 03/26/19 09:51 36.5 C 86 18 104/51 L 96 03/26/19 09:23 36.5 C 96 H 18 115/57 L 96 03/26/19 08:23 36.4 C L 88 18 103/55 L 97 03/26/19 07:53 36.6 C 81 20 100/55 L 97 03/26/19 07:38 36.5 C 91 H 20 100/58 L 96 03/26/19 07:18 36.5 C 92 H 20 95/57 L 96 03/26/19 03:49 36.6 C 89 18 105/54 L 96 03/25/19 23:20 36.5 C 89 18 108/60 97 03/25/19 19:04 36.6 C 81 16 119/66 97 03/25/19 18:42 36.6 C 85 18 122/69 98 03/25/19 18:00 36.1 C L 74 114/69 03/25/19 17:43 36.5 C 137/73 03/25/19 17:30 36.4 C L 89 117/69 03/25/19 17:15 36.4 C L 101 H 108/65 03/25/19 16:38 36.5 C 84 16 106/65 98 03/25/19 16:31 36.8 C 84 16 106/65 98 03/25/19 15:45 87 21 124/61 94 03/25/19 15:40 80 17 100 03/25/19 15:31 36.7 C 96 H 17 98 03/25/19 15:30 83 14 109/73 03/25/19 15:20 87 21 99 03/25/19 15:16 93 H 22 99 03/25/19 15:15 86 19 102/66 91 03/25/19 15:10 90 20 99 03/25/19 15:01 84 13 95 03/25/19 15:00 36.7 C 89 22 110/60 03/25/19 14:50 85 19 98 03/25/19 14:45 92 H 17 98 03/25/19 14:44 36.9 C 93 H 19 122/59 L 94 03/25/19 14:40 90 17 100 03/25/19 14:30 90 15 99 03/25/19 14:20 97 H 14 92 03/25/19 14:16 36.5 C 107 H 18 109/66 92 03/25/19 14:15 94 H 17 93 03/25/19 14:10 99 H 20 03/25/19 14:01 90 17 109/66 87 L 03/25/19 14:00 101 H 21 89 L 03/25/19 13:40 91 H 23 98 Transfer of Care Handoff Completed per policy Notes Mental Status: alert / awake / arousable and participated in evaluation Patient Amnestic to Procedure: Yes Nausea / Vomiting: adequately controlled Pain: adequately controlled Airway Patency, RR, SpO2: stable & adequate BP & HR: stable & adequate Hydration State: stable & adequate Anesthetic Complications: no major complications apparent and Pt Satisfied with anesthetic care
[2019-03-26 16:39] LABS: Basophils # (auto) 0.02 K/uL (0-0.2); Basophils % (auto) 0.1 %; Eosinophils # (auto) 0.18 K/uL (0-0.5); Eosinophils % (auto) 1.3 %; Hematocrit (blood only) 24.3 % (42-52); Hemoglobin 8.3 g/dL (14.0-18.0); Immature Granulocytes # (auto) 0.08 K/uL (0.00-0.02); Immature Granulocytes % (auto) 0.6 %; Lymphocytes % (auto) 10.2 %; Mean Corpuscular Volume 87.1 fL (80-100); Mean Platelet Volume 8.8 fL (7.4-10.4); Monocytes # (auto) 0.92 K/uL (0.11-0.59); Monocytes % (auto) 6.7 %; Neutrophils # (auto) 11.12 K/uL (1.4-6.5); Neutrophils % (auto) 81.1 %; Platelet Count 180 K/uL (130-400); RDW Standard Deviation 47.4 fL (36.4-46.3); Red Blood Count 2.79 M/uL (4.7-6.1); White Blood Count 13.72 K/uL (4.8-10.8)
[2019-03-26 16:50] LABS: Mean Corpuscular Hgb Conc 34.2 g/dL (32-36)
--- NOTE | 2019-03-26 16:52 | Hospitalist Progress Note ---
Date of Service March 26, 2019 Assessment & Plan (1) Symptomatic anemia: This is an 84yo M with a PMH of atrial fibrillation on coumadin, CKD III, HTN and other medical problems listed below who presents with generalized weakness and dark stool x 5 days and was found to have a GI bleed in the setting of supratherapeutic INR. 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 -admission Hemoglobin of 6.8, hematocrit of 19.9, INR elevated at 10.4 -INR reversal with vitamin K 5 mg x 1 given on 03/25/19 -s/p a total of 2.5 units of PRBC and Hgb is 8.3 as of evening of 03/26/19 and patient is s/p EGD on 03/26/19 that was not revealing of source of bleed -patient was offered colonoscopy by gastroenterology service but patient declined -will switch the protonix from IV to oral PPI and continue to monitor in the hospital -monitor bowel movements, send FOBT, stool culture, C.difficile -blood cultures no growth to date (3) Atrial fibrillation: atrial fibrillation is rate controlled continue to hold coumadin (4) Hypertension: amlodipine 10 mg was given today. will hold further amlodipine and re- assess by 03/27/19 (5) Insomnia: Klonopin HS DVT Ppx: SCDs in setting of GI bleed Code status: DNR per discussion with patient Subjective Patient seen at examined at bedside. No distress. He had 1 unit of PRBC this AM. He has EGD that did not identify source of bleeding. Patient at mental baseline. no chest pain. no shortness of breath Physical Exam Constitutional: comfortable Eyes: PERRL, conjunctivae normal, anicteric sclerae + eyes dysmorphic ENMT: external ear and nose normal, oropharynx normal Neck: trachea midline, no thyromegaly normal visual inspection Respiratory: normal respiratory effort, lungs clear to auscultation Cardiovascular: Rate/Rhythm: regular rate and regular rhythm Gastrointestinal (Abdomen): normal bowel sounds, soft, nontender, no hepatosplenomegaly Musculoskeletal: Head/Neck/Chest: normocephalic and head atraumatic Neurologic: PERRL, EOMI, accommodation nl, no face palsy, no dysarthria CN's II-XI intact bilaterally Psychiatric: A+Ox3, euthymic affect Results & Data Vital Signs (Past 12 Hours) Vital Signs Temp Pulse Pulse Resp BP BP Pulse Ox 03/26/19 15:18 36.4 C L 84 22 94/48 L 97 03/26/19 15:00 86 03/26/19 13:42 36.5 C 103 H 18 115/53 L 96 03/26/19 13:07 86 16 107/65 98 03/26/19 12:52 92 H 16 107/62 97 03/26/19 12:40 90 16 103/63 98 03/26/19 11:11 36.6 C 93 H 16 126/61 95 03/26/19 09:51 36.5 C 86 18 104/51 L 96 03/26/19 09:23 36.5 C 96 H 18 115/57 L 96 03/26/19 08:23 36.4 C L 88 18 103/55 L 97 03/26/19 07:53 36.6 C 81 20 100/55 L 97 03/26/19 07:38 36.5 C 91 H 20 100/58 L 96 03/26/19 07:18 36.5 C 92 H 20 95/57 L 96 (1) GI bleed GI bleed type/associated pathology: unspecified gastrointestinal hemorrhage type Qualified Code(s): K92.2 - Gastrointestinal hemorrhage, unspecified
[2019-03-26] MEDS: PANTOprazole 40 MG TAB PO SCH (18:01)
[2019-03-26 20:27] LABS: Cdiff Antigen Positive; Cdiff Toxin A+B Positive Cdiff Toxin (Negative)
[2019-03-26] MEDS: clonazePAM 1 MG TAB PO SCH (21:21)
[2019-03-27] MEDS: VANCOMYCIN HCL 125 MG/2.5ML SOLN PO SCH ×3 (00:32→12:05)
[2019-03-27] MEDS: RASPBERRY SYRUP 5 ML UDP PO SCH ×3 (00:32→12:05)
[2019-03-27 07:05] LABS: Hematocrit (blood only) 26.2 % (42-52); Hemoglobin 9.1 g/dL (14.0-18.0); Mean Corpuscular Hgb Conc 34.7 g/dL (32-36); Mean Corpuscular Volume 87.9 fL (80-100); Mean Platelet Volume 9.1 fL (7.4-10.4); Platelet Count 223 K/uL (130-400); RDW Coefficient of Variation 15.4 % (11.5-14.5); RDW Standard Deviation 48.8 fL (36.4-46.3); Red Blood Count 2.98 M/uL (4.7-6.1); White Blood Count 19.66 K/uL (4.8-10.8)
[2019-03-27 07:21] LABS: INR 1.2 (0.9-1.1); Prothrombin Time 12.4 Seconds (9.0-12.0)
[2019-03-27 07:32] LABS: BUN Creatinine Ratio 17.7 (10-20); Calcium 8.3 mg/dl (8.5-10.1); Creatinine Clr Calc Pharmacy 28.2 ml/min; Est GFR (African American) 38.1; Est GFR (Non-African American) 32.9; Potassium 4.1 mmol/L (3.5-5.1)
[2019-03-27] MEDS ORDERED: METOPROLOL TARTRATE 25 MG TAB PO STA (08:01)
[2019-03-27] MEDS ORDERED: SODIUM CHLORIDE 0.9% 1000ML 1,000 ML IV SCH (08:15)
[2019-03-27] MEDS: PANTOprazole 40 MG TAB PO SCH (09:03)
[2019-03-27] MEDS: NYSTATIN SUSP 500,000 U/5 ML UDC PO SCH ×2 (09:06→12:09)
--- NOTE | 2019-03-27 11:12 | Hospitalist Progress Note ---
Date of Service March 27, 2019 Assessment & Plan (1) Symptomatic anemia: This is an 84yo M with a PMH of atrial fibrillation on coumadin, CKD III, HTN and other medical problems listed below who presents with generalized weakness and dark stool x 5 days and was found to have a GI bleed in the setting of supratherapeutic INR. 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 -admission Hemoglobin of 6.8, hematocrit of 19.9, INR elevated at 10.4 -INR reversal with vitamin K 5 mg x 1 given on 03/25/19 -s/p a total of 2.5 units of PRBC on this admission and Hgb is 8.3 as of evening of 03/26/19 and patient is s/p EGD on 03/26/19 that was not revealing of source of bleed -patient was offered colonoscopy by gastroenterology service but patient declined -Hgb is 9 on 03/27/19 -discharge on oral pantoprazole -Patient should follow up with family medical doctor and have labs checked for CBC and renal function 03/30/2019 11:05 AM Provider DO [facility] Clostridium Difficile infection -Patient should take vancomycin 125 mg four times a day because patient was found to be positive for Clostridium difficile on 03/26/19. Patient encouraged to perform frequent hand washing especially after toileting or before eating (3) Atrial fibrillation: -continue to hold coumadin -heart rate mildly elevated on AM of 03/27/19 but rate controlled currently as metoprolol 12.5 mg was given -Patient should take metoprolol 12.5 mg twice a day for now for heart rate control of the atrial fibrillation, Patient should stop taking amlodipine on discharge oral thrush - should be off coumadin for now because of GI bleed. Patient may take home dose antifungal medication (off coumadin) or nystatin swish and swallow (4) Hypertension: -Patient should take metoprolol 12.5 mg twice a day for now for heart rate control of the atrial fibrillation, Patient should stop taking amlodipine on discharge to avoid hypotension Acute kidney Injury -creatinine uptrended to 1.8 -patient received IV fluids. he did not want to stay longer in the hospital for renal function monitoring -Patient encouraged to drink water to help with kidney function -Patient should follow up with family medical doctor and have labs checked for CBC and renal function 03/30/2019 11:05 AM Provider Camacho Chan DO [facility] Patient has previously made appointments for 04/09/2019 10:30 AM Provider Lab [facility] Department Laboratory [facility] 04/27/2019 2:40 PM Provider Camacho Chan DO [facility] 05/25/2019 9:40 AM Provider Camacho Chan [facility] (5) Insomnia: Klonopin HS DVT Ppx: SCDs in setting of GI bleed Code status: DNR per discussion with patient Discharge Diagnosis Acute blood loss anemia due to drug induced hemorrhagic disorder/GI bleed due to supratherapeutic INR from Coumadin and outpatient Fluconazole; atrial fibrillation; acute kidney injury, Clostridium Difficile infection, oral thrush Subjective -heart rate mildly elevated on AM of 03/27/19 but rate controlled currently as metoprolol 12.5 mg was given. heart rate in the 80s on discharge exam and in atrial fibrillation. creatinine uptrended to 1.8 -patient received IV fluids. he did not want to stay longer in the hospital for renal function monitoring discussed with patient and his abd discharge plans and follow up. patient is ambulatory. no lightheadedness. no dizziness. no abdomen pain. no chest pain. no shortness of breath Physical Exam Constitutional: comfortable Eyes: PERRL, conjunctivae normal, anicteric sclerae + eyes dysmorphic ENMT: external ear and nose normal, oropharynx normal Neck: trachea midline, no thyromegaly normal visual inspection Respiratory: normal respiratory effort, lungs clear to auscultation Cardiovascular: Rate/Rhythm: regular rate and + irregularly irregular Gastrointestinal (Abdomen): normal bowel sounds, soft, nontender, no hepatosplenomegaly Musculoskeletal: Head/Neck/Chest: normocephalic and head atraumatic Neurologic: PERRL, EOMI, accommodation nl, no face palsy, no dysarthria CN's II-XI intact bilaterally Psychiatric: A+Ox3, euthymic affect Results & Data Vital Signs (Past 12 Hours) Vital Signs Temp Pulse Pulse Resp BP BP Pulse Ox 03/27/19 07:25 107 H 03/27/19 07:01 36.5 C 101 H 19 97/55 L 94 03/27/19 02:45 36.7 C 97 H 17 112/64 97 03/26/19 23:35 36.3 C L 84 20 96/53 L 95 (1) GI bleed GI bleed type/associated pathology: unspecified gastrointestinal hemorrhage type Qualified Code(s): K92.2 - Gastrointestinal hemorrhage, unspecified
--- NOTE | 2019-03-27 11:24 | Discharge Summary ---
Date of Service March 27, 2019 Admission HPI Per Admitting Provider This is an 84yo M with a PMH of atrial fibrillation on coumadin, CKD III, HTN and other medical problems listed below who presents with generalized weakness and dark stool x 5 days. Patient started to feel generally weak about 5 days ago and then began having multiple episodes of dark stool daily. Yesterday patient states he had 13 small episodes of dark stool. Denies any bright red blood per rectum. At baseline, patient has multiple episodes of loose stool daily. Starting this morning, patient developed dyspnea on exertion decided to come in the ED for further evaluation. He started taking fluconazole for oral thrush mid-February and his coumadin dose was decreased to 2.5mg daily per coumadin clinic. Endorses intermittent chills but no fever. No lightheadedness, visual changes, chest pain or palpitations. No nausea, vomiting or abdominal pain. Has noted weight loss of 15 pounds over the past few months, but states he has had decreased appetite due to oral thrush. In ED, patient found to be hemodynamically stable with mild tachycardia. Leukocytosis of 15 point 4K. Hemoglobin of 6.8 with hematocrit of 19.9. Platelets are stable at 247. Creatinine elevated at 1.75 (baseline mid-ones). INR supratherapeutic at 10.4. Consented, type and crossed and being transfused first of 2 units PRBCs in the ED. Will give 5mg oral vitamin K x 1. Also initiated on Protonix bolus and drip. 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 No colonoscopy on record. Admission Exam Per Admitting Provider General Appearance: WD/WN, elderly male in no apparent distress, pale Head: normocephalic, atraumatic Eyes: normal inspection, PERRL, EOMI ENT: hearing grossly normal, pharynx normal (dry mucous membranes) Neck: supple, no JVD, no adenopathy Respiratory/Chest: lungs clear to auscultation. No wheezes, rales or rhonci. No respiratory distress or accessory muscle use Cardiovascular: irregular rate & rhythm, no murmur appreciated, normal peripheral pulses, trace BLE edema Abdomen/GI: normal bowel sounds, soft, non-tender to palpation Extremities/Musculoskelatal: normal inspection, no calf tenderness, normal capillary refill, no pedal edema Neurologic/Psych: alert, normal mood/affect, oriented x 3 Skin: warm/dry, pale Principal Diagnosis Acute blood loss anemia due to drug induced hemorrhagic disorder/GI bleed due to supratherapeutic INR from Coumadin and outpatient Fluconazole; atrial fibr illation; acute kidney injury, Clostridium Difficile infection, oral thrush Discharge Exam Constitutional comfortable Eyes PERRL, conjunctivae normal, anicteric sclerae EOM intact bilaterally ENMT external ear and nose normal, oropharynx normal Neck trachea midline, no thyromegaly normal visual inspection Respiratory normal respiratory effort, lungs clear to auscultation Cardiovascular Rate/Rhythm: regular rate and + irregularly irregular Gastrointestinal (Abdomen) normal bowel sounds, soft, nontender, no hepatosplenomegaly Musculoskeletal Head/Neck/Chest: normocephalic and head atraumatic Neurologic PERRL, EOMI, accommodation nl, no face palsy, no dysarthria CN's II-XI intact bilaterally Psychiatric A+Ox3, euthymic affect Discharge Data Allergies Allergy/AdvReac Type Severity Reaction Status Date / Time pravastatin Allergy Unknown Verified 03/25/19 12:31 cholestyramine AdvReac Intermediate muscle Verified 12/28/18 11:24 soreness simvastatin AdvReac Intermediate sore Verified 12/28/18 11:24 muscles pollen extracts AdvReac Unknown sinus Verified 12/28/18 11:24 drainage Consultations 03/25/19 13:39 ED Decision to Admit Stat 03/25/19 16:21 Consult Case Management - Discharge Planning Routine 03/26/19 08:05 Consult Gastroenterology Routine Procedures Performed Operation Date: 03/26/19 08:25 Actual Procedures p Esophagogastroduodenoscopy - [facility] (1) Symptomatic anemia: This is an 84yo M with a PMH of atrial fibrillation on coumadin, CKD III, HTN and other medical problems listed below who presents with generalized weakness and dark stool x 5 days and was found to have a GI bleed in the setting of supratherapeutic INR. 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 -admission Hemoglobin of 6.8, hematocrit of 19.9, INR elevated at 10.4 -INR reversal with vitamin K 5 mg x 1 given on 03/25/19 -s/p a total of 2.5 units of PRBC on this admission and Hgb is 8.3 as of evening of 03/26/19 and patient is s/p EGD on 03/26/19 that was not revealing of source of bleed -patient was offered colonoscopy by gastroenterology service but patient declined -Hgb is 9 on 03/27/19 -discharge on oral pantoprazole -Patient should follow up with family medical doctor and have labs checked for CBC and renal function 03/30/2019 11:05 AM Provider DO Robert Weber [facility] Clostridium Difficile infection -Patient should take vancomycin 125 mg four times a day because patient was found to be positive for Clostridium difficile on 03/26/19. Patient encouraged to perform frequent hand washing especially after toileting or before eating (3) Atrial fibrillation: -continue to hold coumadin -heart rate mildly elevated on AM of 03/27/19 but rate controlled currently as metoprolol 12.5 mg was given -Patient should take metoprolol 12.5 mg twice a day for now for heart rate control of the atrial fibrillation, Patient should stop taking amlodipine on discharge oral thrush - should be off coumadin for now because of GI bleed. Patient may take home dose antifungal medication (off coumadin) or nystatin swish and swallow (4) Hypertension: -Patient should take metoprolol 12.5 mg twice a day for now for heart rate control of the atrial fibrillation, Patient should stop taking amlodipine on discharge to avoid hypotension Acute kidney Injury -creatinine uptrended to 1.8 -patient received IV fluids. he did not want to stay longer in the hospital for renal function monitoring -Patient encouraged to drink water to help with kidney function -Patient should follow up with family medical doctor and have labs checked for CBC and renal function 03/30/2019 11:05 AM Provider DO Robert Weber [facility] Patient has previously made appointments for 04/09/2019 10:30 AM Provider Lab [facility] Department Laboratory [facility] 04/27/2019 2:40 PM Provider DO Robert Weber [facility] 05/25/2019 9:40 AM Provider DO Robert Weber [facility] (5) Insomnia: Klonopin HS DVT Ppx: SCDs in setting of GI bleed Code status: DNR per discussion with patient Discharge Diagnosis Acute blood loss anemia due to drug induced hemorrhagic disorder/GI bleed due to supratherapeutic INR from Coumadin and outpatient Fluconazole; atrial fibrillation; acute kidney injury, Clostridium Difficile infection, oral thrush Total Time Total Time Spent Total Time Spent (In Minutes): 40 minutes Total Time Includes: Examination of the Patient, Discharge Planning, Medication Reconciliation and Communication With Other Providers Discharge Plan Discharge Items Patient Disposition: Home - Self-Care Reason For Visit: GI BLEED, SYMPTOMATIC ANEMIA Discharge Diagnosis: Acute blood loss anemia due to drug induced hemorrhagic di sorder/GI bleed due to supratherapeutic INR from Coumadin and outpatient Fluconazole; atrial fibrillation; acute kidney injury, Clostridium Difficile infection, oral thrush Condition: Good Discharge Goals: Improve disease control Activity: Resume your previous activity Non-emergency contact: Primary Care Provider Call non-emergency contact if: you have any medication questions Follow-up/Referrals: Camacho Chan DO [Primary Care Provider] - Diet: Regular Addtl Provider Instructions: Patient should take metoprolol 12.5 mg twice a day for now for heart rate control of the atrial fibrillation, Patient should stop taking amlodipine on discharge. Patient should be off coumadin for now because of GI bleed. Patient may take home dose antifungal medication (off coumadin) or nystatin swish and swallow Patient should take pantoprazole 40 mg daily Patient should take vancomycin 125 mg four times a day because patient was found to be positive for Clostridium difficile on 03/26/19. Patient encouraged to perform frequent hand washing especially after toileting or before eating Patient encouraged to drink water to help with kidney function Patient should follow up with family medical doctor and have labs checked for CBC and renal function 03/30/2019 11:05 AM Provider DO Robert Weber [facility] Patient had previously made appointments for 04/09/2019 10:30 AM Provider Lab [facility] Department Laboratory [facility] 04/27/2019 2:40 PM Provider DO Robert Weber [facility] 05/25/2019 9:40 AM Provider Camacho Chan DO [facility] Prescriptions: New pantoprazole 40 mg Tablet,Delayed Release (Dr/Ec) 40 mg PO QAM 30 Days Qty: 30 RF: 0 metoprolol tartrate 25 mg Tablet 12.5 mg PO BID 30 Days Qty: 30 RF: 0 vancomycin 125 mg capsule 125 mg PO Q6 10 Days Qty: 40 RF: 0 nystatin 100,000 unit/mL Suspension 5 ml PO QID 10 Days Qty: 200 RF: 0 Continued clonazepam 1 mg tablet 1 mg PO HS RF: 0 clotrimazole 10 mg remigio 10 mg PO 5XD RF: 0 Discontinued amlodipine 10 mg tablet 10 mg PO QAM RF: 0 acetaminophen [Tylenol Extra Strength] 500 mg Tablet 500 mg PO UD PRN (Reason: Pain) RF: 0 warfarin [Jantoven] 2.5 mg tablet 2.5 mg PO QAM RF: 0 Stand-Alone Forms: [facility] Discharge Orders: Discharge Order (Routine); Ordered 03/27/19 Ordered By: Abhilash Mendoza Admission Data Admit Date/Time: 03/25/19 14:32 Attending Provider: Abhilash Mendoza Admit Provider: Abhilash Mendoza Primary Care Provider: Camacho Chan Other Providers: Abhilash Mendoza ; Florencio Eid Service: Telemetry Other Interventions: Discharge Summary Assessment (RN) Last Done: 03/26/19 13:20
[2019-03-27] MEDS ORDERED: RASPBERRY SYRUP 5 ML UDP PO SCH (12:00)
[2019-03-27] MEDS ORDERED: VANCOMYCIN HCL 125 MG/2.5ML SOLN PO SCH (12:00)
[2019-03-27] MEDS ORDERED: METOPROLOL TARTRATE 25 MG TAB PO SCH (21:00)
== END 2019-03-27 12:36 | disposition home or self-care (01) | DRG 813 ==
LOC: ED 12:05 → 2E 14:32